=== PATIENT | male | born 1975 | race Hispanic/Latino ===

== ENCOUNTER 2019-10-12 20:00 | Emergency (ER) | payer OTHER, SELFPAY ==
[2019-10-14 13:53] LABS: SARS-CoV-2 MS2 Positive; SARS-CoV-2 N Gene Positive; SARS-CoV-2 S Gene Positive; SARS-CoV-2 orf1ab Positive
== END 2019-10-12 20:20 | disposition home or self-care (01) ==
LOC: BURERS 20:00
DX: U07.1 COVID-19 (principal)
CPT/HCPCS: 87635; 99283; U0003

== ENCOUNTER 2022-04-20 07:52 | Emergency (ER) | payer SELFPAY ==
[2022-04-20 08:48] LABS: #Eosinphils 0.1 thou/uL (0.0-0.7); #Lymphocytes 1.4 thou/uL (1.20-3.40); #Monocytes 0.3 thou/uL (0.11-0.59); #Neutrophils 3.5 thou/uL (1.40-6.50); %Basophils 0.6 % (0.0-1.0); %Eosinophils 1.8 % (0.0-10.0); %Lymphocytes 25.7 % (21.0-51.0); %Monocytes 5.1 % (0.0-10.0); %Neutrophils 66.7 % (42.0-75.0); Hemoglobin 15.3 g/dL (14.0-18.0); Mean Corpuscular HGB CONC 34.1 g/dL (32.0-36.0); Mean Corpuscular Hemoglobin 31.8 pg (27.0-31.0); Mean Corpuscular Volume 93.4 fl (78.0-98.0); Mean Platelet Volume 10.3 fL (7.4-10.4); Platelet Count 241 10x3/uL (130-400); RBC Distribution Width 11.9 % (11.5-14.5); White Blood Cell (WBC) Count 5.3 10x3/uL (4.8-10.8)
[2022-04-20 08:53] LABS: ALT (SGPT) 20 U/L (8-55); AST (SGOT) 27 U/L (5-34); Albumin 4.2 g/dL (3.5-5.0); Alkaline Phosphatase 71 U/L (40-110); Anion Gap 15 mmol/L (10-20); BUN (Urea Nitrogen) 10 mg/dL (8.9-20.6); Bilirubin, Total 0.5 mg/dL (0.2-1.2); Calc. Creatinine Clearance 0 mL/min (70-130); Carbon Dioxide 21 mmol/L (22-29); Chloride 107 mmol/L (98-107); Estimated GFR 115; Globulin 2.9 g/dL (2.4-3.5); Glucose 100 mg/dL (70-105); Lipase 19 U/L (8-78); Potassium 2.8 mmol/L (3.5-5.1); Protein, Total 7.1 g/dL (6.0-8.3); Sodium 140 mmol/L (136-145)
[2022-04-20 09:11] LABS: Acetaminophen Less than 10.0 mcg/mL (10.0-30.0); Alcohol Less than 10 mg/dL (Less than 10); CK (CPK) 311 U/L (30-200); Salicylate Less than 8.0 mg/dL (15.0-30.0)
[2022-04-20] MEDS ORDERED: Potassium Chloride 20 MEQ TAB ONE (09:37)
[2022-04-20 09:53] LABS: Bilirubin Negative (Negative); Blood, Urine Negative (Negative); Clarity Clear (Clear); Glucose, Urine (Dipstick) Negative (Negative); Ketone, Urine Negative (Negative); Leukocyte Negative (Negative); Nitrite Negative (Negative); Protein, Urine (Dipstick) Negative (Neg-Trace); Specific Gravity, Urine 1.015 (1.005-1.030); Urobilinogen 0.2 mg/dL (Less than 2)
[2022-04-20 11:20] LABS: Lactic Acid 0.8 mmol/L (0.5-2.2)
== END 2022-04-20 11:44 | disposition home or self-care (01) ==
LOC: BURERS 07:52
DX: I10 Essential (primary) hypertension (principal); E87.6 Hypokalemia
CPT/HCPCS: 36415; 80053; 80307; 81003; 82550; 83605; 83690; 84484; 85025; 99284